=== PATIENT | female | born 1975 | race Two or more races ===

== ENCOUNTER 2022-01-24 15:27 | Emergency (ER) | payer OTHER ==
[~2022-01-24] VITALS: Ht 165.1 cm; Wt 59.0 kg
== END 2022-01-24 18:00 | disposition home or self-care (01) ==
LOC: ER 15:27
DX: S91.212A Laceration without foreign body of left great toe with damage to nail, initial encounter (principal); W45.8XXA Other foreign body or object entering through skin, initial encounter; W22.8XXA Striking against or struck by other objects, initial encounter; Y93.89 Activity, other specified; Y92.89 Other specified places as the place of occurrence of the external cause; Y99.9 Unspecified external cause status

== ENCOUNTER 2022-04-22 08:32 | Emergency (ER) | payer OTHER ==
[~2022-04-22] VITALS: Ht 165.1 cm; Wt 56.7 kg
[2022-04-22] MEDS ORDERED: NAPROXEN500 MG PO (09:04)
[2022-04-22] MEDS ORDERED: ZANAFLEX4 MG PO (09:04)
== END 2022-04-22 10:54 | disposition home or self-care (01) ==
LOC: ER 08:32
DX: M54.9 Dorsalgia, unspecified (principal)

== ENCOUNTER 2022-08-25 13:06 | Outpatient (CLI) | payer OTHER ==
[~2022-08-25 13:06] MED LIST: NAPROXEN500 MG PO; ZANAFLEX4 MG PO
== END 2022-08-25 13:42 | disposition home or self-care (01) ==
LOC: MAMO-SONO 13:06
PROVIDERS: ATTEND Specialist
DX: Z12.31 Encounter for screening mammogram for malignant neoplasm of breast (principal); N60.11 Diffuse cystic mastopathy of right breast; N60.12 Diffuse cystic mastopathy of left breast

== ENCOUNTER 2022-09-18 12:58 | Outpatient (CLI) | payer OTHER | END 2022-09-18 13:13 | disposition home or self-care (01) | LOC: RAD 12:58 | PROVIDERS: ATTEND Internal Medicine | DX: J20.9 Acute bronchitis, unspecified (principal) ==

== ENCOUNTER 2024-05-03 04:08 | Emergency (ER) | payer OTHER ==
[~2024-05-03] VITALS: Ht 167.6 cm; Wt 56.7 kg
[2024-05-03] MEDS ORDERED: VALTREX1000 MG (04:36)
[2024-05-03] MEDS ORDERED: CIPROFLOXACIN IN 5 % DEXTROSE 400 MG/200 ML PIGGYBAG IV STA (06:37)
[2024-05-03] MEDS ORDERED: CIPROFLOXACIN IN 5 % DEXTROSE 400 MG/200 ML PIGGYBAG IV ONE (07:24)
[2024-05-03 07:52] LABS: PH,URINE 5.5 (5.0-8.0); URINE APPEARANCE Clear; URINE BILIRRUBIN Negative (NEGATIVE); URINE BLOOD Negative; URINE COLOR Yellow; URINE GLUCOSE Negative (NEGATIVE); URINE KETONE Negative (NEGATIVE); URINE LEUKOCYTE Negative; URINE NITRATE Negative; URINE PROTEIN Negative (NEGATIVE); URINE UROBILINOGEN 0.2 E.U./dl
[2024-05-03 07:56] LABS: URINE BACTERIA 168.8 uL (0.0-1933); URINE EPITHELIAL CELLS 9.9 uL (0.0-38.8); URINE WBC 10.2 uL (0.0-23.2)
[2024-05-03 10:57] LABS: HEMATOCRIT 42.6 % (36.0-45.00); HEMOGLOBIN 15.1 g/dL (12.0-15.00); MEAN CELL VOLUME 91.9 fL (80.00-100.00); MEAN CORPUSCULAR HEMOGLOBIN 32.6 pg (27.00-32.0); MEAN CORPUSCULAR HGB CONC 35.5 g/dl (32.0-36.0); PLATELET COUNT 188 K/uL (150-450); RED BLOOD COUNT 4.64 M/uL (4.00-6.00); RED CELL DISTRIBUTION WIDTH 12.8 % (11.5-14.5)
[2024-05-03 11:26] LABS: BILIRUBIN TOTAL 0.6 mg/dL (0.3-1.2); CALCIUM 9.4 mg/dL (8.5-10.1); CREATININE SERUM 0.85 mg/dL (0.55-1.02); GFR 71.69; GLOBULINA 3.1 G/DL (2.4-3.5); POTASSIUM 4.08 mEq/L (3.5-5.1); TOTAL PROTEIN 7.1 gm/dL (6.4-8.2)
[2024-05-03] MEDS ORDERED: TAMS0.4C PO (11:52)
== END 2024-05-03 12:42 | disposition home or self-care (01) ==
LOC: ER 04:10
PROVIDERS: General Practice
DX: K59.00 Constipation, unspecified (principal); R30.0 Dysuria; Z88.6 Allergy status to analgesic agent

== ENCOUNTER 2024-10-30 09:48 | Outpatient (CLI) | payer OTHER ==
[~2024-10-30 09:48] MED LIST changes: +TAMS0.4C PO; +VALTREX1000 MG
== END 2024-10-30 10:03 | disposition home or self-care (01) ==
LOC: MAMO-SONO 09:48
PROVIDERS: ATTEND Specialist
DX: N60.11 Diffuse cystic mastopathy of right breast (principal); N60.12 Diffuse cystic mastopathy of left breast